=== PATIENT | female | born 1965 | race Caucasian/White ===

== ENCOUNTER 2022-07-10 14:57 | Emergency (ER) | payer OTHER, BC | END 2022-07-10 22:55 | disposition home or self-care (01) | LOC: CSHERS 14:57 | DX: S00.83XA Contusion of other part of head, initial encounter (principal); E78.00 Pure hypercholesterolemia, unspecified; E66.9 Obesity, unspecified; I11.0 Hypertensive heart disease with heart failure; I50.9 Heart failure, unspecified; W01.0XXA Fall on same level from slipping, tripping and stumbling without subsequent striking against object, initial encounter; Z79.899 Other long term (current) drug therapy | CPT/HCPCS: 70450; 72125; 99283 ==